=== PATIENT | female | born 1955 | race Hispanic/Latino ===

== ENCOUNTER 2020-09-03 18:55 | Emergency (ER) | payer BC ==
[~2020-09-03] VITALS: Ht 157.5 cm; Wt 61.7 kg
[~2020-09-03 18:55] MED LIST: GUAIFENESIN-CO118 ML PO; LISINOPRIL20 MG PO; LOSARTAN-HCTZ1 EAC1 PO; MELOXICAM15 MG PO; METOPROLOL SUCC25 MG PO; NYQUIL D COLD295 ML PO; PANTOPRAZOLE SO40 MG PO; SERTRALINE HCL50 MG PO; SUCRALFATE1 GM PO
== END 2020-09-04 01:40 | disposition home or self-care (01) ==
LOC: ED 18:55
DX: R10.84 Generalized abdominal pain (principal); I10 Essential (primary) hypertension; Z79.899 Other long term (current) drug therapy
CPT/HCPCS: 74176; 80053; 81001; 83690; 85025; 96374; 96375; 99284-25; J1170; J2405

== ENCOUNTER 2023-08-10 09:29 | Day surgery (SDC) | payer BC ==
[~2023-08-10] VITALS: Ht 147.3 cm; Wt 63.6 kg
[~2023-08-10 09:29] MED LIST changes: +CARAFATE1 GM PO; +IBLOOD GLUCOSE TEST STRIP 1 EA TEST VI PRN; +LACTATED RINGER'S 1,000 ML IV SCH; +LIDOCAINE HCL 1% 5 ML SDV INJ ONE; +LIDOCAINE HCL 4% 50 ML BTL TOP SCH; +MIDAZOLAM HCL 5 MG/5 ML VIAL IV PRN; +fentaNYL citrate 100 MCG/2 ML VIAL IV PRN
[2023-08-10 09:55] VITALS: BP 181/67
[2023-08-10] MEDS ORDERED: MIDAZOLAM HCL 5 MG/5 ML VIAL ONE (11:57)
[2023-08-10] MEDS ORDERED: fentaNYL citrate 100 MCG/2 ML VIAL ONE (11:58)
--- NOTE | 2023-08-10 13:06 | NUR ---
08/10/23 1306 Antonia Valerio PATIENT MOVES HER ARMS AND HER HEAD UPON ARRIVAL TO PACU. SHE RESTS QUIETLY, WITH HER EYES CLOSED WHEN UNDISTURBED. RR EVEN AND UNLABORED.
[2023-08-10 13:37] VITALS: BP 140/73
--- NOTE | 2023-08-11 11:54 | OR ---
[facility] [address], [place] [address] Signed DATE OF OPERATION: 08/10/2023 SURGEON: Chavo Musa MD PREOPERATIVE DIAGNOSES: 1. Abdominal bloating and fullness; family history of gastric cancer (son age 32, ). 2. Colon screening. POSTOPERATIVE DIAGNOSES: 1. Small hiatal hernia without associated esophagitis. No evidence of gastric neoplasm. 2. Diverticulosis of colon and polyp x1 (rectosigmoid). PROCEDURES: 1. Esophagogastroduodenoscopy with biopsy. 2. Total colonoscopy to cecum with cold snare polypectomy x1. ANESTHESIA: Intravenous sedation; fentanyl 150 mcg, Versed at 5 mg. INDICATION: This 68-year-old woman is a patient of William Hrenandez. She is known to me from the past. She is here for evaluation of upper abdominal symptoms including bloating and fullness. She has had a gallbladder ultrasound in 2020, which showed no sign of stones. Quite notably she does have family history of stomach cancer in her son at age 32, who of the disease. She has no associated dysphagia. She is taking sucralfate and pantoprazole with no apparent benefit. Additionally, the patient has last had colonoscopy nearly 10 years ago in 2014. She has no symptoms of bleeding, diarrhea or constipation and no family history of colon cancer. Concurrent colonoscopy to upper endoscopy is offered. She understands the risk of bleeding, infection, and perforation and wished to proceed. FINDINGS: Upper endoscopy showed no evidence of gastric neoplasm. There was a hiatal hernia but no severe esophagitis. Certainly, no Medina's epithelium. CLOtest was negative. The duodenum was also normal. On colonoscopy, the prep was quite good. Complete colonoscopy was undertaken of the cecum. She had a number of diverticula of the sigmoid and left colon and a single Electronically Signed By: CHAVO MUSA MD 08/11/23 1154 PATIENT NAME: MICHAEL WAITE OPERATIVE REPORT DATE OF : 53 REPORT #: [id number] PHYSICIAN: CHAVO MUSA MD PCP: WILLIAM HERNANDEZ PAC REPORT IS CONFIDENTIAL AND NOT TO BE RELEASED WITHOUT AUTHORIZATION [facility] [address], [place] [address] Signed adenomatous appearing polyp of the rectum, which was excised with cold snare technique. DESCRIPTION OF PROCEDURE: The patient was brought to the endoscopy suite and given topical lidocaine hypopharyngeal anesthesia, placed in the lateral decubitus position. She was given intravenous sedation to the point of slurred speech and nystagmus with full cardiopulmonary monitoring. Olympus video upper endoscope was passed in the hypopharynx. The vocal cords appeared normal. Scope was advanced to the esophagus without problem, throughout its length it was normal. Scope was advanced to the stomach. Rugal folds were normal as was the antral motility. Pylorus was normal. Scope was passed through into the duodenum, which was normal. Biopsies were performed to assess for celiac disease. The scope was withdrawn and biopsy was then taken of the antrum for both MCKAYLA and pathologic testing. Retroflexed view confirmed a small hiatal hernia. There was no sign of gastric neoplasm proximally. Withdrawal of the scope in a straightened position allowed for biopsy of the distal esophagus and ultimately midesophagus, both of which appeared clinically normal. Plans were then made for colonoscopy. Additional sedation was given and digital rectal examination was performed which was normal. An Olympus video colonoscope was passed in the rectum and manipulated throughout the colon noting diverticula of the sigmoid colon. Scope was ultimately advanced to the cecum. Ileocecal valve and appendiceal orifice were not fully visualized, though a biopsy forcep was used to elevate the mucosa in the region to more fully evaluate the cecum, which in fact was normal. The scope was then withdrawn and examination throughout confirmed only diverticular changes of the left colon and sigmoid, but in the rectum, in the proximal portion was a sessile polyp approaching 1 cm in size. This was excised with cold snare technique without problem. The specimen was passed for pathology. Retroflexed view was otherwise normal. Scope was removed and the patient was taken to the recovery room in good condition. CONCLUDING DIAGNOSES: 1. No evidence of gastric neoplasm; small hiatal hernia without profound esophagitis. 2. Diverticula of colon as well as single adenomatous polyp of rectum. PLAN: Review of medical records shows she last had a gallbladder ultrasound in 2020, which showed no sign of stones or other abnormality. A repeat ultrasound may be an idea considering her symptoms of abdominal pain, not apparently responsive to Carafate and PPI medication. There appears to be no evidence of gastric neoplasm, this is of special concern considering her son's at age 32 from stomach cancer. Electronically Signed By: CHAVO MUSA MD 08/11/23 1154 PATIENT NAME: MICHAEL WAITE OPERATIVE REPORT DATE OF : 53 REPORT #: [id number] PHYSICIAN: CHAVO MUSA MD PCP: WILLIAM HERNANDEZ PAC REPORT IS CONFIDENTIAL AND NOT TO BE RELEASED WITHOUT AUTHORIZATION [address] [address] Signed As regard to colon, single polyp has been excised. Would recommend repeat colonoscopy in 3 to 5 years, sooner if clinically indicated. She will call our office and we will make plans for gallbladder ultrasound and if negative, consideration for CCK-HIDA test. MD JERRICA Saunders/LUIS ENRIQUEL /[id number] cc: William Hernandez PA-C Copies: WILLIAM HERNANDEZ ~ Electronically Signed By: CHAVO MUSA MD 08/11/23 1154 PATIENT NAME: MICHAEL WAITE OPERATIVE REPORT DATE OF : 53 REPORT #: [id number] PHYSICIAN: CHAVO MUSA MD PCP: WILLIAM HERNANDEZ REPORT IS CONFIDENTIAL AND NOT TO BE RELEASED WITHOUT AUTHORIZATION
--- NOTE | 2023-08-14 13:35 | PATH ---
[facility] [address], [place] [address] Signed SPECIMEN(S): A DUODENAL BIOPSY SPECIMEN(S): B ANTRUM/PYLORUS BIOPSY SPECIMEN(S): C DISTAL ESOPHAGEAL BIOPSY SPECIMEN(S): D MIDDLE ESOPHAGEAL BIOPSY SPECIMEN(S): E RECTAL POLYP SPECIMEN SOURCE: A. DUODENAL BIOPSY B. ANTRUM/PYLORUS BIOPSY C. DISTAL ESOPHAGEAL BIOPSY D. MIDDLE ESOPHAGEAL BIOPSY E. RECTAL POLYP CLINICAL HISTORY: Screening, GERD, bloating, small hiatal hernia, polyps, diverticulosis FINAL PATHOLOGIC DIAGNOSIS: A. 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 B. Antrum, biopsy: - Benign antral mucosa, negative for active inflammation or H. pylori bacteria. C. Distal esophagus, biopsies: - Chronic reflux esophagogastritis, negative for Medina's metaplasia. D. Middle esophagus, biopsy: - Benign squamous mucosa without diagnostic abnormality. E. Rectal polyp, biopsies: - Fragments of tubular adenoma. AMB MICROSCOPIC EXAMINATION: Histologic sections of all submitted blocks are examined by light microscopy. These findings, together with the gross examination, support the pathologic diagnosis. GROSS DESCRIPTION: A. The specimen, labeled and designated "Naya duodenum biopsy," is received in formalin and consists of two dias soft tissue fragments, ranging from 0.1-0.2 cm. Entirely submitted in (A1). B. The specimen, labeled and designated "Naya, antrum biopsy," is received in PATIENT NAME: MICHAEL WAITE PATHOLOGY DATE OF : 53 REPORT #: [id number] PHYSICIAN: CHIVO RAJPUT PCP: WILLIAM WILCOX PAC REPORT IS CONFIDENTIAL AND NOT TO BE RELEASED WITHOUT AUTHORIZATION [facility] [address], [place] [address] Signed formalin and consists of one dias soft tissue fragment, 0.2 cm. Entirely submitted in (B1). C. The specimen, labeled and designated "Naya, distal esophagus biopsy," is received in formalin and consists of three dias soft tissue fragments, ranging from 0.1-0.5 cm. Entirely submitted in (C1). D. The specimen, labeled and designated "Naya, middle esophagus biopsy," is received in formalin and consists of one dias soft tissue fragment, 0.4 cm. Entirely submitted in (D1). E. The specimen, labeled and designated "Naya, rectal polyp," is received in formalin and consists of two dias soft tissue fragments, ranging from 0.1-0.2 cm. Entirely submitted in (E1). JS (under the direct supervision of a pathologist) The Gross Description was prepared using a voice recognition system. The report was reviewed for accuracy; however, sound-alike word errors, addition and/or deletions may occur. If there is any question about this report, please contact Client Services. ADDITIONAL NOTES: Immunohistochemical and/or in situ hybridization studies if performed in this case included appropriate positive controls that reacted as expected. This test was developed and its performance characteristics determined by [facility]. It has not been cleared or approved by the U.S. Food and Drug Administration. The FDA has determined that such clearance or approval is not necessary. This test is used for clinical purposes. It should not be regarded as investigational or for research. [facility] is certified under the Clinical Laboratory Improvement Amendments of 1988 (CLIA) as qualified to perform high complexity clinical laboratory testing. PERFORMING LABORATORY: Technical component was performed by [facility], [address] [place] [address] (CLIA# [id number]). Professional interpretation was performed by [facility] [address] [facility] [phone] [id number] Diagnostician: Reba Londono MD Pathologist Electronically Signed 08/14/2023 PATIENT NAME: MICHAEL WAITE PATHOLOGY DATE OF : 53 REPORT #: [id number] PHYSICIAN: CHIVO RAJPUT PCP: WILLIAM WILOCX PAC REPORT IS CONFIDENTIAL AND NOT TO BE RELEASED WITHOUT AUTHORIZATION [address] [place] [address] Signed Copies: ~ PATIENT NAME: JOSE WAITETENCIA PATHOLOGY DATE OF : 53 REPORT #: [id number] PHYSICIAN: CHIVO PATHOLOGY PCP: WILLIAM WILCOX PAC REPORT IS CONFIDENTIAL AND NOT TO BE RELEASED WITHOUT AUTHORIZATION
== END 2023-08-10 13:49 | disposition home or self-care (01) ==
LOC: DS 09:29 → OPS 09:29 → DS 11:10 → OPS 11:10 → DS 11:30 → OPS 13:49
PROVIDERS: ATTEND Surgery
PROC: 0DB28ZX Excision of Middle Esophagus, Via Natural or Artificial Opening Endoscopic, Diagnostic (ICD-10-PCS; 2023-08-10)
PROC: 0DB38ZX Excision of Lower Esophagus, Via Natural or Artificial Opening Endoscopic, Diagnostic (ICD-10-PCS; 2023-08-10)
PROC: 0DBN8ZZ Excision of Sigmoid Colon, Via Natural or Artificial Opening Endoscopic (ICD-10-PCS; 2023-08-10)
PROC: 0DB98ZX Excision of Duodenum, Via Natural or Artificial Opening Endoscopic, Diagnostic (ICD-10-PCS; principal; 2023-08-10 11:10)
PROC: 0DB68ZX Excision of Stomach, Via Natural or Artificial Opening Endoscopic, Diagnostic (ICD-10-PCS; 2023-08-10 11:10)
DX: Z12.11 Encounter for screening for malignant neoplasm of colon (principal); D12.8 Benign neoplasm of rectum; K29.80 Duodenitis without bleeding; K20.90 Esophagitis, unspecified without bleeding; K57.30 Diverticulosis of large intestine without perforation or abscess without bleeding; K44.9 Diaphragmatic hernia without obstruction or gangrene; Z80.0 Family history of malignant neoplasm of digestive organs
CPT/HCPCS: 99153; G0500; J2250; J3010